=== PATIENT | female | born 1955 | race Caucasian/White ===

== ENCOUNTER 2018-12-30 15:27 | Emergency (ER) | payer MEDICARE ==
[2018-12-30 15:55] VITALS: BP 116/68
--- NOTE | 2018-12-30 15:58 | UC ---
Lower Extremity/Ankle HPI - HPI Summary HPI Summary: 63-year-old female who walked 3 miles this morning and following that started having some left foot pain. She denies any specific injury. She states she usually walks only 1 mile a day. - History of Current Complaint Chief Complaint: UCLowerExtremity Stated Complaint: LEFT FOOT INJURY Time Seen by Provider: 12/30/18 15:50 Hx Obtained From: Patient ?: No Onset/Duration: Gradual Onset Severity Initially: Moderate Severity Currently: Moderate Pain Intensity: 10 Aggravating Factor(s): Standing, Ambulation Alleviating Factor(s): Rest, Elevation Able to Bear Weight: Yes - But with pain - Allergies/Home Medications Allergies/Adverse Reactions: Allergies Allergy/AdvReac Type Severity Reaction Status Date / Time No Known Allergies Allergy Verified 12/30/18 15:55 Home Medications: Home Medications Calcium Carbonate [Calcium] 500 mg PO DAILY 12/30/18 [History Confirmed 12/30/18 ] Ergocalciferol (Vitamin D2) [Vitamin D2] 2,000 unit PO DAILY 12/30/18 [History Confirmed 12/30/18] Sertraline HCl [Zoloft] 25 mg PO DAILY 12/30/18 [History Confirmed 12/30/18] PMH/Surg Hx/FS Hx/Imm Hx Previously Healthy: Yes - Surgical History Surgical History: None Surgery Procedure, Year, and Place: lumpectomy 1994 - Family History Known Family History: Positive: Non-Contributory - Social History Occupation: Retired Lives: With Family Alcohol Use: None Substance Use Type: None Smoking Status (MU): Never Smoked Tobacco Review of Systems All Other Systems Reviewed And Are Negative: Yes Musculoskeletal: Positive: Other: - Pain lateral left foot when walking. Is Patient Immunocompromised?: No Physical Exam Triage Information Reviewed: Yes Appearance: Well-Appearing, No Pain Distress, Well-Nourished Vital Signs: Initial Vital Signs Temp 98.2 F 12/30/18 15:49 Pulse 75 12/30/18 15:49 Resp 16 12/30/18 15:49 BP 116/68 12/30/18 15:49 Pulse Ox 100 12/30/18 15:49 Vital Signs Reviewed: Yes Musculoskeletal: Positive: Strength Intact, ROM Intact, No Edema - Achilles is intact, tenderness on palpation to the lateral left foot. The patient had already had an x-ray done prior to her arrival here which was negative. No bruising, erythema or deformity. There is minimal swelling to the proximal lateral left foot. Base of the first and fifth metatarsals are nontender. Good peripheral pulses neuro sensation and capillary refill. Neurological Exam: Normal Psychological Exam: Normal Skin Exam: Normal Lower Extremity Course/Dx - Course Course Of Treatment: Left foot x-ray: The left foot x-ray was ordered by her , Dr. Espinoza as an outpatient and then she was told to come here. INDICATION: Left foot pain. TECHNIQUE: 3 views of the left foot were obtained. FINDINGS: The bones appear osteopenic and in normal alignment. No acute fracture is seen. Joint spaces appear maintained. IMPRESSION: NO EVIDENCE FOR FRACTURE. A 3 inch Chandana bandage was applied and the patient was given crutches. She was helped out to her car by the nursing staff. - Differential Dx/Diagnosis Provider Diagnosis: Sprain of left foot Discharge ED - Sign-Out/Discharge Documenting (check all that apply): Patient Departure All imaging exams completed and their final reports reviewed: No Studies - Discharge Plan Condition: Fair Disposition: HOME Patient Education Materials: Foot Sprain (ED) Referrals: Herman Munoz MD [Medical Doctor] - Juan Wray MD [Primary Care Provider] - Additional Instructions: Apply ice and elevate intermittently over the next day or 2, limit ambulation. May ambulate as pain permits. Tylenol every 4 hours may take Motrin or ibuprofen every 8 hours for pain. Follow-up with the orthopedist in 4 or 5 days if no improvement. - Billing Disposition and Condition Condition: FAIR Disposition: Home
== END 2018-12-30 16:29 | disposition home or self-care (01) ==
LOC: UCCORT 15:27
DX: S93.602A Unspecified sprain of left foot, initial encounter (principal); X58.XXXA Exposure to other specified factors, initial encounter; Y93.01 Activity, walking, marching and hiking; Y92.9 Unspecified place or not applicable; M85.872 Other specified disorders of bone density and structure, left ankle and foot
CPT/HCPCS: 99212; G0463